=== PATIENT | female | born 1955 | race Caucasian/White ===

== ENCOUNTER 2024-05-29 17:13 | Inpatient (IN) | payer MEDICARE, MEDICAID, SELFPAY ==
[2024-05-29] VITALS (8 sets, daily range): BP systolic 118–152; BP diastolic 70–90; PULSE 55–105; RESP 16–20; TEMP 36.8–37.3; O2SAT 95–98; BMI 26.6
--- NOTE | 2024-05-29 17:35 | CTR_ITS ---
PROCEDURE INFORMATION: Exam: CT Head Without Contrast Exam date and time: 05/29/2024 6:06 PM Age: 68 years old Clinical indication: Stroke-like symptoms; Speech disturbance; Additional info: Symptoms of acute stroke TECHNIQUE: Imaging protocol: Computed tomography of the head without contrast. Radiation optimization: All CT scans at this facility use at least one of these dose optimization techniques: automated exposure control; mA and/or kV adjustment per patient size (includes targeted exams where dose is matched to clinical indication); or iterative reconstruction. Other technique: STROKE PROTOCOL was implemented. COMPARISON: No relevant prior studies available. RADIATION DOSE METRICS: Total DLP (mGy-cm): 991.08 FINDINGS: Brain: There is moderate cortical atrophy. Low-density changes in the white matter are consistent with nonspecific small vessel chronic ischemic change. There is no intracranial mass, hemorrhage or edema. There is focal cortical encephalomalacia right posterior parietal lobe in keeping with small chronic cortical infarct. There is also small chronic cortical infarct left frontal lobe. There also small bilateral chronic cerebellar infarcts. Cerebral ventricles: No ventriculomegaly. Paranasal sinuses: Visualized sinuses are unremarkable. No fluid levels. Mastoid air cells: Visualized mastoid air cells are well aerated. Bones: Unremarkable. No acute fracture. Soft tissues: Unremarkable. CT/CT head thrombolytic [id number] IMPRESSION: Old infarcts. No acute intracranial abnormality. ASSESSMENT: ASPECTS ([place] Stroke Program Early CT Score) is 10.
--- NOTE | 2024-05-29 17:35 | ECG_ITS ---
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 Measurements Intervals [place] Rate: 84 P: 64 WY: 215 QRS: 69 QRSD: 90 T: 45 QT: 364 QTc: 431 Interpretive Statements SINUS RHYTHM WITH FIRST DEGREE AV BLOCK No previous ECG available for comparison Electronically Signed On 05-29-2024 22:31:44 CDT by Ricardo Vicente M.D. [id number]
[2024-05-29 18:00] LABS: Glucose Point of Care 123 mg/dL (70-110)
[2024-05-29 18:12] LABS: Basophils # 0.1 10^3/uL (0.0-0.1); Basophils % 1.4 %; Eosinophils # 0.1 10^3/uL (0.0-0.8); Eosinophils % 0.9 %; Hematocrit 38.6 % (36-47); Lymphocytes # 2.1 10^3/uL (0.8-4.8); Lymphocytes % 24.2 %; Mean Corpuscular HGB Conc 34.2 g/dL (30-55); Mean Corpuscular Hemoglobin 33.3 pg (27-33); Mean Corpuscular Volume 97.5 fl (85-98); Mean Platelet Volume 10.5 fL (7.4-10.4); Monocytes # 0.5 10^3/uL (0.2-0.9); Neutrophils # 5.67 10^3/uL (1.8-7.7); Neutrophils % 67.1 %; Nucleated Red Blood Cells % 0 %; Platelet Count 246 10^3/cmm (157-399); Red Blood Count 3.96 10^6/uL (3.85-5.65); White Blood Count 8.46 10^3/uL (3.29-11.43)
[2024-05-29 18:26] LABS: INR 0.98 (0.8-1.2)
[2024-05-29 18:27] LABS: Partial Thromboplastin Time 24.4 SECONDS (23.9-36.7)
[2024-05-29 18:30] LABS: Alanine Aminotransferase 16 U/L (0-33); Albumin Level 4.3 g/dL (3.5-5.2); Alkaline Phosphatase 87 U/L (35-105); Anion Gap 15.5 (5-19); Aspartate Amino Transferase 26 U/L (0-32); Blood Urea Nitrogen 7 mg/dL (8-23); Carbon Dioxide 23 mmol/L (22-29); Chloride 106 mmol/L (98-107); Creatinine Clr Calc Pharmacy 58.3565; Globulin 3.3 g/dL (1.3-4.6); Glomerular Filtration Rate 62.5 mL/min (90-130); Glucose 120 mg/dL (65-115); Osmolality Calculated 291 mOsm/kg (285-295); Potassium 3.5 mmol/L (3.5-5.1); Sodium 141 mmol/L (136-145); Total Bilirubin 0.8 mg/dL (0.15-1.2); Total Protein 7.6 g/dL (6.6-8.7)
--- NOTE | 2024-05-29 18:41 | ED_ITS ---
HPI - Neuro Symptoms/Deficit 2 General: Chief Complaint: Neuro Symptoms/Deficit Stated Complaint: Stroke Time Seen by Provider: 05/29/24 17:30 History of Present Illness: 68-year-old female presents along with h er ex- who is reportedly her caregiver and who lives with her. Last night, ex- states that he felt some shaking in the bed. When he looked over she had her arm stuck up in the air. He reports that she was difficult to wake up; he had to use a moist wet cloth. Eventually she woke up and he called EMS because her speech seemed slurred. They came and did an assessment. The patient had return to baseline and she refused to come here. She has had various different complaints throughout the morning. When she checked and she reported something about chest pain which she now denies. Currently she is saying that she feels like her right second toe is cramping. Patient reports previously in the day she had ringing in her years and then it popped and went away. Later during the interview she says her right foot feels like it swelling. Then, she says she feels like her tongue is swelling. Patient recently started Rexulti for manic episodes. At this time, patient does not have any focal neurologic deficits but she was originally triaged as possible stroke because she reported she felt like her speech was slurred. Associated symptoms: Deny nausea, syncope or vomiting Related Data Home Medications Medication Instructions Recorded Confirmed atorvastatin 20 mg tablet 20 mg PO QPM 05/29/24 05/29/24 brexpiprazole 0.5 mg tablet 0.5 mg PO DAILY 05/29/24 05/29/24 (Rexulti) hydrocodone 10 mg-acetaminophen 1 tab PO Q4H PRN Pain 05/29/24 05/29/24 325 mg tablet Allergies Allergy/AdvReac Type Severity Reaction Status Date / Time No Known Allergies Allergy Verified 05/29/24 19:40 Review of Systems 2 General: Reports: 10 or more systems reviewed and unremarkable except in HPI and below Const: Denies: fever(s), chills or body aches Eyes: Denies: change in vision ENMT: Denies: throat pain Card: Denies: edema or syncope Resp: Denies: dyspnea or productive cough GI: Denies: abdominal pain, nausea, vomiting or diarrhea : Denies: flank pain, dysuria or urinary frequency Musc: Denies: neck pain, back pain or extremity swelling Skin/Breast: Denies: rash or erythema Neuro: Denies: weakness in extremities, lack of coordination or difficulty walking Psych: Reports: anxiety and difficulty concentrating; Denies: paranoia, visual hallucinations, auditory hallucinations, suicidal ideation or homicidal ideation NIH stroke score 2 NIHSS: Level Of Consciousness - 1a: 0 Level Of Consciousness Questions - 1b: Both Correct Level Of Consciousness Commands - 1c: Both Correct Best Gaze - 2: Normal Visual Kc - 3: No Visual Loss Facial Palsy - 4: N ormal Motor Arm Right - 5: No Drift Motor Arm Left - 5: No Drift Motor Leg Right - 6: No Drift Motor Leg Left - 6: No Drift Limb Ataxia - 7: A bsent Sensory - 8: Normal Best Language - 9: No Aphasia Dysarthia - 10: Normal Extinction And Inattention - 11: 0 Score: Total Score: 0 Physical Exam 2 Const: COMMON NORMALS: no limitations, alert and well nourished EXAM LIMITATIONS: no altered mental status GENERAL APPEARANCE: well kempt HENMT: COMMON NORMALS: normocephalic, atraumatic and external ears normal H EAD & SCALP: normocephalic and atraumatic EXTERNAL EAR: Yes external ears normal MOUTH: no muffled voice Eye: COMMON NORMALS: EOMs intact bilaterally, conjunctivae normal and no scleral icterus CONJUNCTIVA: Yes conjunctivae normal Neck/C-Spine: COMMON NORMALS: no JVD GENERAL: Yes normal visual inspection and Yes trachea midline Resp: COMMON NORMALS: normal respiratory effort, No use of accessory muscles and clear to auscultation bilaterally AUSCULTATION: clear to auscultation bilaterally Cardio: COMMON NORMALS: no JVD, regular rate and regular rhythm RATE: r egular rate RHYTHM: regular rhythm GI: COMMON NORMALS: Soft to palpation and non-tender PALPATION: Yes Soft to palpation and No Guarding due to palpation present (GI) Extremity: COMMON NORMALS: normal to inspection Neuro: COMMON NORMALS: moves all extremities, no focal motor deficits and no sensory deficits noted SENSORIUM/ORIENTATION: Yes alert SPEECH: speech normal Psych: COMMON NORMALS: mental status grossly normal APPEARANCE: Yes grossly normal and Yes well kempt ATTITUDE: Yes engaged ACTIVITY/MOTOR BEHAVIOR: Y es appropriate eye contact, Yes fidgeting and Yes restless SPEECH: Yes Pressured speech present MOOD & AFFECT: Yes anxious, No irritable, No tearful and No expansive affect THOUGHT PROCESS: Flight of ideas present THOUGHT CONTENT: Yes Normal thought content present INSIGHT: Fair insight present (Psych) Skin: COMMON NORMALS: turgor normal and no jaundice GENERAL SKIN EXAM: t urgor normal and other (Healing left great toe paronychia, part of the great toenail was removed fo) Course 2 ED course: CT scan of the head shows multiple old strokes. The patient's laboratory workup here has been mostly unremarkable. Nothing to explain her symptoms. While she was here, her came out of the room and said she had an episode where her face seemed to scrunched up and then she complained of feeling numb all over her body. No tonic-clonic movements. I went in to reassess her and she is able to follow commands, normal speech, normal mentation, she feels kind of numb diffusely on the left and right side of her body and all throughout her body. It is certainly nonfocal. She is moving all of her extremities with excellent strength and normal coordination. At this point, I think the patient needs an MRI and may need an EEG. I have reached out to neurology for consultation at 1945 Consultations: Consultation #1: Discussed with Dr Martin at [facility] Neurology. Ddx: seizure, functional/psych, TIA. Reasonable to do MRI brain, spot eeg (up to 3x per day). Consider seizure medication if concern persists, depakote. Vital Signs: Vital signs: Vital Signs Temperature 99.1 F 05/29/24 17:23 Pulse Rate 68 05/29/24 22:24 Respiratory Rate 17 05/29/24 21:42 Blood Pressure 132/76 05/29/24 22:24 Pulse Oximetry 95 05/29/24 22:24 Oxygen Delivery Me thod Room Air 05/29/24 22:53 MDM - Neuro Symptoms/Deficit Medical Decision Making Patient has a variety of complaints and concerns which seem to wax and wane. I cannot find any focal neurologic deficits on her examination on arrival. She is anxious and somewhat restless. She was recently treated for riley and is on rexulti. She seems to have some flight of ideas. She is somewhat delayed in answering her orientation questions but is able to do so accurately. Concerning last night's episode, it is unclear whether she was having a nightmare, seizure, dystonic reaction, or something else. There is a very large differential diagnosis for this that ranges from mental health to seizure to some infection, metabolic disturbance, medication adverse effect, atypical cva, encephalopathy, and large differential diagnosis. UPDATES: Patient has several old infarcts on her CT scan. Her workup in the emergency department has been unremarkable. Differential diagnosis remains functional, stroke, seizure, medication side effect. Patient will be admitted for MRI of the brain. Patient aware that we do not have EEG on the weekend. If there is clinical concern for seizure, we can start Depakote or similar. Discussed with hospitalist for admission. Lab Data 05/29/24 17:58 05/29/24 17:[address] 05/29/24 17:35 IMPRESSION: Old infarcts. No acute intracranial abnormality. ASSESSMENT: ASPECTS ([place] Stroke Program Early CT Score) is 10. Laboratory Results WBC 8.46 10^3/uL (3.29-11.43) 05/29/24 17:58 RBC 3.96 10^6/uL (3.85-5.65) 05/29/24 17:58 Hgb 13.20 g/dL (11.27-16.99) 05/29/24 17:58 Hct 38.6 % (36-47) 05/29/24 17:58 MCV 97.5 fl (85-98) 05/29/24 17:58 MCH 33.3 pg (27-33) H 05/29/24 17:58 MCHC 34.2 g/dL (30-55) 05/29/24 17:58 RDW 13.0 % (12.1-15.1) 05/29/24 17:58 Plt Count 246 10^3/cmm (157-399) 05/29/24 17:58 MPV 10.5 fL (7.4-10.4) H 05/29/24 17:58 Neut % (Auto) 67.1 % 05/29/24 17:58 Lymph % (Auto) 24.2 % 05/29/24 17:58 [place] % (Auto) 6.0 % 05/29/24 17:58 Eos % (Auto) 0.9 % 05/29/24 17:58 Baso % (Auto) 1.4 % 05/29/24 17:58 Neut # (Auto) 5.67 10^3/uL (1.8-7.7) 05/29/24 17:58 Lymph # (Auto) 2.1 10^3/uL (0.8-4.8) 05/29/24 17:58 [place] # (Auto) 0.5 10^3/uL (0.2-0.9) 05/29/24 17:58 Eos # (Auto) 0.1 10^3/uL (0.0-0.8) 05/29/24 17:58 Baso # (Auto) 0.1 10^3/uL (0.0-0.1) 05/29/24 17:58 Nucleated RBC % (auto) 0 % 05/29/24 17:58 Nucleated RBCs # 0.0 /100WBC 05/29/24 17:58 PT 13.30 SECONDS (12.1-14.9) 05/29/24 17:58 INR 0.98 (0.8-1.2) 05/29/24 17:58 APTT 24.4 SECONDS (23.9-36.7) 05/29/24 17:58 Sodium 141 mmol/L (136-145) 05/29/24 17:58 Potassium 3.5 mmol/L (3.5-5.1) 05/29/24 17:58 Chloride 106 mmol/L (98-107) 05/29/24 17:58 Carbon Dioxide 23 mmol/L (22-29) 05/29/24 17:58 Anion Gap 15.5 (5-19) 05/29/24 17:58 BUN 7 mg/dL (8-23) L 05/29/24 17:58 Creatinine 0.9 mg/dL (0.5-0.9) 05/29/24 17:58 GFR Calculation 62.5 mL/min (90-130) L 05/29/24 17:58 Glucose 120 mg/dL (65-115) H 05/29/24 17:58 POC Glucose 123 mg/dL (70-110) H 05/29/24 17:56 Calculated Osmolality 291 mOsm/kg (285-295) 05/29/24 17:58 Calcium 9.0 mg/dL (8.5-10.5) 05/29/24 17:58 Total Bilirubin 0.8 mg/dL (0.15-1.2) 05/29/24 17:58 AST 26 U/L (0-32) 05/29/24 17:58 ALT 16 U/L (0-33) 05/29/24 17:58 Alkaline Phosphatase 87 U/L (35-105) 05/29/24 17:58 Total Protein 7.6 g/dL (6.6-8.7) 05/29/24 17:58 Albumin 4.3 g/dL (3.5-5.2) 05/29/24 17:58 Globulin 3.3 g/dL (1.3-4.6) 05/29/24 17:58 Urine Color Yellow (Yellow) 05/29/24 20:07 Urine Appearance Clear (CLEAR) 05/29/24 20:07 Urine pH 6.5 (5-7) 05/29/24 20:07 Ur Specific [place] 1.010 (1.005-1.030) 05/29/24 20:07 Urine Protein Negative (Negative) 05/29/24 20:07 Urine Glucose (UA) Negative (Normal) 05/29/24 20:07 Urine Ketones Negative (Negative) 05/29/24 20:07 Urine Blood 1+ (Negative) A 05/29/24 20:07 Urine Nitrate Negative (Negative) 05/29/24 20:07 Urine Bilirubin Negative (Negative) 05/29/24 20:07 Urine Urobilinogen 1.0 mg/dL (Negative) 05/29/24 20:07 Ur Leukocyte Esterase Trace (Negative) A 05/29/24 20:07 Urine RBC 0-2 /hpf (0-2) 05/29/24 20:07 Urine WBC 0-5 /hpf (0-5) 05/29/24 20:07 Ur Squamous Epith Cells 6-10 /hpf (0-5) 05/29/24 20:07 Amorphous Sediment Not Reportable 05/29/24 20:07 Urine Bacteria None seen /hpf (NONE) 05/29/24 20:07 Hyaline Casts 1.21 /lpf 05/29/24 20:07 Urine Opiates Screen Negative ng/mL (Negative) 05/29/24 20:07 Ur Barbiturates Screen Negative ng/mL (Negative) 05/29/24 20:07 Ur Phencyclidine Scrn Negative ng/mL (Negative) 05/29/24 20:07 Ur Amphetamines Screen Negative ng/mL (Negative) 05/29/24 20:07 U Benzodiazepines Scrn Negative ng/mL (Negative) 05/29/24 20:07 Urine Cocaine Screen Negative ng/mL (Negative) 05/29/24 20:07 U Marijuana (THC) Screen Positive ng/mL (Negative) H 05/29/24 20:07 All radiology interpretation(s) finalized by discharge ED provider radiology interpretation(s): CT Radiology interp: Brain: There is moderate cortical atrophy. Low-density changes in the white matter are consistent with nonspecific small vessel chronic ischemic change. There is no intracranial mass, hemorrhage or edema. There is focal cortical encephalomalacia right posterior parietal lobe in keeping with small chronic cortical infarct. There is also small chronic cortical infarct left frontal lobe. There also small bilateral chronic cerebellar infarcts. Cerebral ventricles: No ventriculomegaly. Paranasal sinuses: Visualized sinuses are unremarkable. No fluid levels. Mastoid air cells: Visualized mastoid air cells are well aerated. Bones: Unremarkable. No acute fracture. Soft tissues: Unremarkable. Discharge Plan Discharge Patient Disposition: Admitted As Inpatient Admit Provider: Edwardo Brooks Clinical Impression: Convulsions, Slurred speech, Anxiety Condition: Stable Coding Level of Care Code ED Finance Controller for Mary Alice Camargo
[2024-05-29 20:19] LABS: Bilirubin Urine Negative (Negative); Blood Urine 1+ (Negative); Glucose Urine UA Negative (Normal); Ketones Urine Negative (Negative); Leukocyte Esterase Urine Trace (Negative); Nitrate Urine Negative (Negative); Protein Urine Negative (Negative); Urine Appearance Clear (CLEAR); Urine Color Yellow (Yellow); pH Urine 6.5 (5-7)
[2024-05-29 20:24] LABS: Add Urine Microscopic? YES; Bacteria Urine None Seen /hpf; Hyaline Casts Urine 1.21 /lpf; RBC Urine 0-2 /hpf (0-2); WBC Urine 0-5 /hpf (0-5)
[2024-05-29 20:26] LABS: Amphetamines Screen Urine Negative (Negative); Barbiturates Screen Urine Negative (Negative); Benzodiazepines Screen Urine Negative (Negative); Cocaine Screen Urine Negative (Negative); Opiate Screen Urine Negative (Negative); PCP Screen Urine Negative (Negative); THC Screen Urine Positive (Negative)
[2024-05-29] MEDS: nicotine 21 mg Patch 1 PATCH TRANSDERMA (22:17)
[2024-05-30] VITALS (9 sets, daily range): BP systolic 121–152; BP diastolic 63–83; PULSE 54–71; RESP 16–18; TEMP 36.8–37; O2SAT 95–98
--- NOTE | 2024-05-30 00:32 | MRR_ITS ---
PROCEDURE INFORMATION: Exam: MR Head Without Contrast Exam date and time: 05/30/2024 10:21 AM Age: 68 years old Clinical indication: Altered mental status/memory loss; Confusion or disorientation; Additional info: Possible seizure TECHNIQUE: Imaging protocol: Magnetic resonance imaging of the head without contrast. COMPARISON: CT head thrombolytic [id number] 05/29/2024 6:06 PM FINDINGS: Brain: There is prominence of the subarachnoid spaces compatible with atrophy. No extra-axial fluid collections or masses are appreciated. There are small-vessel ischemic change within the periventricular white matter. There is an old left cerebellar infarct. Small punctate focus of diffusion restriction is noted involving the posterior left temporal lobe cortex suggesting a small acute infarct. No vasogenic edema, mass, or positive mass effect is noted. No abnormal enhancement is noted on the postcontrast images. Cerebral ventricles: Normal. No ventriculomegaly. Bones: Unremarkable. Paranasal sinuses: Normal as visualized. No acute sinusitis. Mastoid air cells: Normal as visualized. No mastoid effusion. Orbital cavities: Unremarkable. Soft tissues: Unremarkable. MR/MR head wo/w con [id number] IMPRESSION: 1. Atrophy with small-vessel ischemic change and old left cerebellar infarct. 2. Small punctate acute infarct involving the cortex of the posterior left temporal lobe.
--- NOTE | 2024-05-30 01:00 | P.HP_ITS ---
Providers/Chief Complaint 2 Admitting Physician: Edwardo Brooks Primary Care Provider: Alize Damon MD Chief Complaint: Stroke History of Present Illness Pleasant 68-year-old lady with history of depression, reports had been recently started on Rexulti about a week ago was brought in for evaluation due to concern for her ex- who has been taking care of her, last night he noticed that she was having shaking spell in bed and had her arm stuck up in the air. She reportedly was difficult to wake up after the episode. At that time EMS was called after she woke up due to her having slurred speech although she declined to come to the hospital at that time. She reported additional complaints to ER physician, including toe cramping, episode of ringing in her ears, swelling of tongue apart from the above. With concern for possible seizure, case was discussed with neurologist, and recommendation for MRI assessment, spot EEG, as per schedule with ER physician with patient and family that we do not have EEG on weekend, or neurology consultation available, they are aware and would still like to stay here for initial assessment management. Review of Systems 2 Const: Denies: fever(s), chills, body aches or malaise Card: Denies: chest pain Resp: Denies: dyspnea GI: Denies: nausea, vomiting or diarrhea Skin/Breast: Denies: rash Medications/Allergies Home Medications Medication Instructions Recorded Confirmed Last Taken Type atorvastatin 20 mg tablet 20 mg PO QPM 05/29/24 05/29/24 Unknown History brexpiprazole 0.5 mg tablet 0.5 mg PO DAILY 05/29/24 05/29/24 Unknown History (Rexulti) hydrocodone 10 mg-acetaminophen 1 tab PO Q4H PRN Pain 05/29/24 05/29/24 Unknown History 325 mg tablet Allergies Allergy/AdvReac Type Severity Reaction Status Date / Time No Known Allergies Allergy Verified 05/29/24 19:40 PFSH Acute 2 PFSH: Medical History (Updated 05/30/24 @ 01:02 by Edwardo Brooks MD) Riley Depression Social History (Updated 05/30/24 @ 01:02 by Edwardo Brooks MD) Smoking and tobacco/nicotine status: current every day tobacco/nicotine user Alcohol intake: current Alcohol intake frequency: holidays/special occasions only Substance/Drug Use: current Substance/Drug use type: Marijuana Lives independently: Yes Marital status: Vitals/I&O/Wt Last Vital Signs Temp 98.3 F 05/29/24 22:37 Pulse 55 L 05/29/24 22:37 Resp 17 05/29/24 22:37 BP 152/74 05/29/24 22:37 Pulse Ox 98 05/29/24 22:37 O2 Del Method Room Air 05/29/24 22:53 Weight last 48 hrs Weight 70.307 kg Physical Exam 2 Const: COMMON NORMALS: patient oriented x3 and alert GENERAL APPEARANCE: c ooperative ORIENTATION/CONSCIOUSNESS: Yes awake HENMT: COMMON NORMALS: oropharynx normal Neck/C-Spine: COMMON NORMALS: no JVD Resp: COMMON NORMALS: normal respiratory effort and clear to auscultation bilaterally AUSCULTATION: clear to auscultation bilaterally Cardio: COMMON NORMALS: no JVD, regular rhythm, S1 normal heart sound present, S2 normal heart sound present and No murmurs present (Cardio) RHYTHM: regular rhythm HEART SOUNDS: S1 normal heart sound present and S2 normal heart sound present GI: COMMON NORMALS: Normal to inspection, nondistended, normoactive bowel sounds present, Soft to palpation and non-tender PALPATION: Yes Soft to palpation Extremity: COMMON NORMALS: no joint enlargement and no pedal edema Neuro: COMMON NORMALS: patient oriented x3 and moves all extremities S ENSORIUM/ORIENTATION: Yes alert Skin: COMMON NORMALS: no rashes or lesions noted GENERAL SKIN EXAM: no rashes or lesions noted Data 05/29/24 17:58 05/29/24 17:58 A&P Assessment and plan (1) Convulsions: Convulsions reported by her ex- who was staying over, she was then difficulty awake and having slurred speech subsequently, although initially declined assessment at that time when EMS had arrived. With additional episode waxing and waning, they came in for assessment. Case was discussed with neurology with recommendation for additional assessment MRI, spot EEG, although per discussion with patient and family we do not have EEG or neurology consultation currently by ER physician, day prefer to stay here. MRI is requested. Reviewed vitals, CBC, CMP, UA, UDS, EKG, on my depression first- degree block, pending official read, CT head, ER documentation, discussed with ER provider. She reports that she was recently started on Rexulti for depression, per prior record riley, discussed with her this medication may have adverse effect of seizure. Would not continue Rexulti given concern for possible seizure episode. In case of need for mood stabilization and/or recurrence of further episodes as per neurology consideration may be given to initiation on Depakote. She does not have slurred speech currently. Has been nonfocal on exam. Hold aspirin and additional stroke workup until MRI results available (2) Slurred speech: Additional assessment by MRI for possibility of CVA, and after possible seizure episode. Plan Depression, riley, had been recently started on Rexulti. Smoking addiction: Discussed for 3 and half minutes, encourage cessation. She is not ready to quit continue to revisit. Nicotine patch had been requested, nicotine lozenges such as needed. She also smokes marijuana, which she states she obtains from a dispensary by prescription. HLD: Continue statin. Attestations 2 Medical Necessity Statement*: Place in observation for additional assessment management after episode of possible seizure, slurred speech, assessment of possible CVA. and High MDM includes number and complexity of problems actively addressed during encounter and amount and/or complexity of data reviewed/ordered [ previous or external records, resulted lab(s)/test(s), ordered lab(s)/test(s), independent test interpretation and other healthcare professional discussion] as documented Diagnoses Convulsions R56.9 Slurred speech R47.81
[2024-05-30 05:03] LABS: Magnesium 1.9 mg/dL (1.7-2.3)
[2024-05-30 06:43] LABS: Glucose Point of Care 114 mg/dL (70-110)
--- NOTE | 2024-05-30 08:17 | USR_ITS ---
PROCEDURE INFORMATION: Exam: US Duplex Bilateral Extracranial Arteries; Complete; Carotid Arteries Exam date and time: 05/30/2024 4:30 PM Age: 68 years old Clinical indication: Other: CVA TECHNIQUE: Imaging protocol: Real-time duplex ultrasound scan of the bilateral extracranial arteries combining gabriel scale, color Doppler and spectral waveform analysis with image documentation. Complete exam. Exam focused on the carotid arteries. COMPARISON: CT head thrombolytic [id number] 05/29/2024 6:06 PM FINDINGS: Right common carotid artery: Mild plaquing right common carotid bifurcation. Right internal carotid artery: Unremarkable. No occlusion or stenosis. Waveforms are normal. Right ICA/CCA ratio: Within normal limits. Right external carotid artery: No stenosis in the origin. Right vertebral artery: Unremarkable. Antegrade flow. Left common carotid artery: Mild plaquing left common carotid bifurcation. Left internal carotid artery: Unremarkable. No occlusion or stenosis. Waveforms are normal. Left ICA/CCA ratio: Within normal limits. Left external carotid artery: No stenosis in the origin. Left vertebral artery: Unremarkable. Antegrade flow. US/CV carotid duplex BI* [id number] IMPRESSION: No high-grade carotid arterial stenosis. REFERENCES: SRU CRITERIA. The degree of internal carotid artery stenosis is based on criteria defined by the Society of Radiologists in Ultrasound (SRU). Normal is no stenosis. Mild is less than 50% stenosis. Moderate is 50-69% stenosis. Severe is greater than 69% stenosis to near occlusion. Near occlusion is a markedly narrowed lumen. Total occlusion is no detectable patent lumen.
--- NOTE | 2024-05-30 08:17 | USCV_ITS ---
Estefany Chin Age: 68 Gender: F : 1955 Exam Date: 05/30/2024 16:02 Ordering Phys: Neymar Claudio MD Technologist: Alex Faulkner Exam Location: [facility] [place] Indication: cva BP: 151 / 168 HR: 72 Rhythm: Sinus Technical Quality: Adequate MEASUREMENTS (Male / Female) Normal Values 2D ECHO LV Diastolic Diameter PLAX 4.5 cm 4.2 - 5.9 / 3.9 - 5.3 cm IVS Diastolic Thickness 1.3 cm 0.6 - 1.0 / 0.6 - 0.9 cm IVS Systolic Thickness 1.6 cm LVPW Diastolic Thickness 1.8 cm 0.6 - 1.0 / 0.6 - 0.9 cm LVPW Systolic Thickness 2.1 cm LVOT Diameter 2.1 cm LV Ejection Fraction 2D Teich 70.8 % LV Ejection Fraction MOD 4C 66.1 % LV Ejection Fraction MOD 2C 66.5 % LV Ejection Fraction 2C AL 67.0 % LA Diameter 3.2 cm RA Systolic Volume 4C AL 28.1 ml RA Systolic Volume 4C MOD 27.8 ml LA Sys Volume AL 69.5 cm cubed LA Sys Volume Index AL 38.6 cm cubed/m squared Aorta at Sinotubular Diameter 2.6 cm IVC Diameter 1.9 cm M-MODE LA Ao Ratio MM 1.2 AV Cusp Separation MM 1.4 cm DOPPLER AV Peak Velocity 479.5 cm/s LVOT Peak Velocity 143.0 cm/s AV Area Cont Eq pk 1.1 cm squared MV Peak Velocity 303.0 cm/s MV Area PHT 3.1 cm squared Mitral E to A Ratio 0.7 TV Peak Velocity 297.0 cm/s TR Peak Velocity 308.0 cm/s TR Peak Gradient 37.9 mmHg TR Mean Velocity 221.0 cm/s TR Mean Gradient 22.2 mmHg TR Velocity Time Integral 84.5 cm PV Peak Velocity 117.0 cm/s RV Ejection Time 0.3 s FINDINGS Left Ventricle Left ventricle is normal in size. LV function is normal with EF 55 to 60%. No regional wall motion abnormalities seen. Grade 1 diastolic dysfunction. Right Ventricle Normal in size and function. Right Atrium Normal in size. Left Atrium Dilated. Mitral Valve Structurally normal mitral valve. Mild mitral regurgitation. Aortic Valve Aortic valve is thickened and calcified. Doppler exam not adequate to assess for aortic stenosis. Mild to moderate aortic regurgitation Tricuspid Valve Mild tricuspid regurgitation. Pulmonary artery systolic pressure is normal. Pulmonic Valve Not well visualized Pericardium Normal Aorta Normal in size IVC Appears to be normal CONCLUSIONS LV systolic function is normal with EF of 55-60% Grade 1 diastolic dysfunction Left atrial dilation Mild mitral regurgitation Aortic valve is thickened and calcified. Doppler exam not adequate to assess for aortic stenosis. Mild to moderate aortic regurgitation Mild tricuspid regurgitation. No comparison studies are available Jak Caldwell MD (Electronically Signed) Final Date: 31 May 2024 10:31 S
[2024-05-30] MEDS: aspirin 81 mg EC Tablet PO (08:32)
[2024-05-30] MEDS: ALPRAZolam 0.5 mg Tablet PO (09:51)
[2024-05-30] MEDS: gadobenate dimeglumine 20 mL vial IV (10:55)
[2024-05-30] MEDS: sodium chloride 0.9% 1,000 ML 75 ML IV (11:13)
[2024-05-30 12:36] LABS: Glucose Point of Care 129 mg/dL (70-110)
[2024-05-30] MEDS: nicotine 21 mg Patch 1 PATCH TRANSDERMA (13:39)
--- NOTE | 2024-05-30 15:14 | P.PN_ITS ---
Subjective 2 Subjective: Patient was seen this morning, she is sitting up beside the bed, she denies any fevers, chills, cough is alert oriented x 3, following all commands, no focal neurologic deficits, no headache, blurry vision, she does at times have word finding difficulty, no's slurring of her words, she tells me that she has been told that she has strokes, but her outpatient physician she does smoke cigarettes, Vitals/I&O/Wt Last Vital Signs Temp 98.3 F 05/30/24 12:00 Pulse 65 05/30/24 12:00 Resp 16 05/30/24 12:00 BP 151/68 05/30/24 12:00 Pulse Ox 98 05/30/24 12:00 O2 Del Method Room Air 05/30/24 12:00 05/30/24 05/30/24 05/30/24 06:59 14:59 22:59 Intake Total 240 / 240 240 / 240 Balance 240 / 240 240 / 240 Weight last 48 hrs Weight 70.715 kg Weight 70.534 kg Weight 70.307 kg Physical Exam 2 Const: COMMON NORMALS: no acute distress and patient oriented x3 Resp: COMMON NORMALS: normal respiratory effort, No retractions, No use of accessory muscles and clear to auscultation bilaterally AUSCULTATION: clear to auscultation bilaterally Cardio: COMMON NORMALS: regular rate, regular rhythm, S1 normal heart sound present and S2 normal heart sound present RATE: regular rate RHYTHM: r egular rhythm HEART SOUNDS: S1 normal heart sound present and S2 normal heart sound present GI: COMMON NORMALS: Normal to inspection, nondistended, normoactive bowel sounds present and non-tender Extremity: COMMON NORMALS: no pedal edema Neuro: COMMON NORMALS: patient oriented x3, CN's II-XII intact bilaterally, moves all extremities, no focal motor deficits and no sensory deficits noted OTHER: Does have word finding difficulty Psych: COMMON NORMALS: mental status grossly normal Data 05/29/24 17:58 05/29/24 17:58 A&P Assessment and plan (1) Convulsions: (2) Slurred speech: (3) Acute CVA (cerebrovascular accident): (4) Anxiety: Acute CVA -Reported slurring of her words, not currently -NIH stroke scale 0 -Mild word finding difficulty -MRI of the brain MR/MR head wo/w con [id number] IMPRESSION: 1. Atrophy with small-vessel ischemic change and old left cerebellar infarct. 2. Small punctate acute infarct involving the cortex of the posterior left temporal lobe. Plan -Allow for permissive hypertension -Aspirin, statin, Plavix ? IV fluids ? Allow for permissive hypertension treat if systolic greater than 220 diastolic if greater than 120 -Neurochecks, NIH stroke scale -PT OT, -Telemetry monitoring -Will order event monitor at discharge -Cardiac echo -Carotid ultrasound Plan Depression, riley, had been recently started on Rexulti. Smoking addiction: Discussed for 3 and half minutes, encourage cessation. She is not ready to quit continue to revisit. Nicotine patch had been requested, nicotine lozenges such as needed. She also smokes marijuana, which she states she obtains from a dispensary by prescription. HLD: Continue statin. Attestations 2 Medical Necessity Statement*: Patient requires hospitalization, inpatient, greater than 2 midnights, for acute CVA Diagnoses Convulsions R56.9 Slurred speech R47.81 Acute CVA (cerebrovascular accident) I63.9 Anxiety F41.9
[2024-05-30] MEDS: clopidogrel 75 mg Tablet PO (15:30)
[2024-05-30 17:11] LABS: Glucose Point of Care 85 mg/dL (70-110)
[2024-05-30] MEDS: atorvastatin 40 mg Tablet PO (20:56)
[2024-05-31] VITALS: BP 129/61; PULSE 62; RESP 16; TEMP 36.7; O2SAT 96
[2024-05-31 04:00] VITALS: BP 155/76; PULSE 61; RESP 17; TEMP 36.7; O2SAT 96
[2024-05-31] MEDS: nicotine 4 mg lozenge MUCOUS MEM (05:27)
[2024-05-31 05:39] LABS: Basophils # 0.1 10^3/uL (0.0-0.1); Basophils % 1.8 %; Eosinophils # 0.6 10^3/uL (0.0-0.8); Eosinophils % 8.3 %; Hematocrit 39.3 % (36-47); Lymphocytes # 2.2 10^3/uL (0.8-4.8); Lymphocytes % 28.9 %; Mean Corpuscular HGB Conc 32.8 g/dL (30-55); Mean Corpuscular Hemoglobin 32.8 pg (27-33); Mean Platelet Volume 10.6 fL (7.4-10.4); Monocytes # 0.8 10^3/uL (0.2-0.9); Monocytes % 10.3 %; Neutrophils % 50.4 %; Nucleated Red Blood Cells % 0 %; Platelet Count 242 10^3/cmm (157-399); Red Blood Count 3.93 10^6/uL (3.85-5.65); White Blood Count 7.74 10^3/uL (3.29-11.43)
[2024-05-31 06:00] VITALS: PULSE 69
[2024-05-31 06:08] LABS: Anion Gap 14.4 (5-19); Blood Urea Nitrogen 8 mg/dL (8-23); Calcium 8.6 mg/dL (8.5-10.5); Carbon Dioxide 23 mmol/L (22-29); Chloride 109 mmol/L (98-107); Creatinine Clr Calc Pharmacy 58.5626; Glomerular Filtration Rate 62.5 mL/min (90-130); Glucose 98 mg/dL (65-115); Osmolality Calculated 294 mOsm/kg (285-295); Potassium 3.4 mmol/L (3.5-5.1); Sodium 143 mmol/L (136-145)
[2024-05-31] MEDS: nicotine 21 mg Patch 1 PATCH TRANSDERMA (07:42)
[2024-05-31] MEDS: aspirin 81 mg EC Tablet PO (07:42)
[2024-05-31 08:50] VITALS: BP 166/80; PULSE 63; RESP 18; TEMP 36.8; O2SAT 99
--- NOTE | 2024-05-31 10:38 | PM.DCS ---
Discharge Providers Date of Admission: 05/30/24 10:35 Date of Discharge: May 31, 2024 Attending Provider at Admission: Edwardo Brooks Attending Provider at Discharge: Neymar Claudio MD Primary Care Provider: Alize Damon MD Diagnoses at Discharge Discharge Diagnosis (1) Convulsions: Status: Acute (2) Slurred speech: Status: Acute (3) Acute CVA (cerebrovascular accident): Status: Acute (4) Anxiety: Status: Acute Reason for Visit Reason for Visit: Stroke Hospital Course Hospital Course This is a 68-year-old female who has a past medical history of depression, who presents [facility] for slurred speech, and having a shaking spell while in bed This is a 68-year-old female with a past medical history of smoking, multiple sclerosis, prior history of CVAs who presents [facility] for slurring her words, shaking , diagnosed with an acute CVA as per MRI head ct CT/CT head thrombolytic 60605 IMPRESSION: Old infarcts. No acute intracranial abnormality. head mri MR/MR head wo/w con [id number] IMPRESSION: 1. Atrophy with small-vessel ischemic change and old left cerebellar infarct. 2. Small punctate acute infarct involving the cortex of the posterior left temporal lobe. carotid us US/CV carotid duplex BI* [id number] IMPRESSION: No high-grade carotid arterial stenosis. cardiac echo CONCLUSIONS LV systolic function is normal with EF of 55-60% Grade 1 diastolic dysfunction Left atrial dilation Mild mitral regurgitation Aortic valve is thickened and calcified. Doppler exam not adequate to assess for aortic stenosis. Mild to moderate aortic regurgitation Mild tricuspid regurgitation. No comparison studies are available -During my assessment she is alert oriented x 3, following all commands no focal neurologic deficits no headache no blurry vision she was ambulating around the room without any significant symptomatology, no trouble swallowing does have intermittent word finding difficulty, but no other significant symptomatology, no lightheadedness, dizziness, no unsteadiness, she has a caregiver at home, her son is at home, her ex- is at home she has appropriate help, she feels that she can go home today, does not require significant assistance -She was managed on aspirin, statin, plavix V fluids, permissive hypertension -On discharge she remains relatively asymptomatic, no significant focal neurologic deficits she is alert oriented x 3, follows all commands ambulating around the room without any significant symptomatology -Will discharge on aspirin, Plavix, statin with a close follow-up with a primary care provider as outpatient for blood pressure check -Start [facility] tomorrow -I had an extensive discussion with her about quitting smoking cigarettes, morbidity mortality discussed risk of recurrent CVAs, hypercoagulability she voiced understanding, all questions answered, agreed to stop smoking -Discussed with her that she has any recurrent strokelike symptoms to go to emergency room -Given her history of prior CVAs involving multiple vascular territories I am going to order a event monitor to see if A-fib is a possible etiology although her telemetry monitoring as inpatient was within normal limits ? Patient was instructed if she develops bloody or black stools on aspirin and Plavix stimuli come to emergency room ? For concerns for convulsions, no episodes during the hospitalization continue to hold Rexulti, monitor for seizure episodes if so come back to the hospital Physical Exam Const: COMMON NORMALS: no acute distress and patient oriented x3 GENERAL APPEARANCE: cooperative Eye: COMMON NORMALS: Equal, round and reactive pupils present and EOMs intact bilaterally PUPIL: Yes Equal, round and reactive pupils present Resp: COMMON NORMALS: normal respiratory effort, No retractions, No use of accessory muscles and clear to auscultation bilaterally AUSCULTATION: clear to auscultation bilaterally Cardio: COMMON NORMALS: regular rate, regular rhythm, S1 normal heart sound present and S2 normal heart sound present RATE: regular rate RHYTHM: regular rhythm HEART SOUNDS: S1 normal heart sound present and S2 normal heart sound present GI: COMMON NORMALS: Normal to inspection, nondistended, normoactive bowel sounds present and non-tender Extremity: COMMON NORMALS: no pedal edema Neuro: COMMON NORMALS: patient oriented x3, CN's II-XII intact bilaterally, moves all extremities and no focal motor deficits Psych: COMMON NORMALS: mental status grossly normal Discharge Data Studies Completed and Pending Completed Studies During Hospitalization Category Date Time Status CT head thrombolytic [id number] Stat Cat Scan 05/29/24 17:35 Completed MR head wo/w con [id number] Routine MRI 05/30/24 00:32 Completed CV carotid duplex BI* [id number] Routine Ultrasound 05/30/24 08:17 Completed CV. echo complete* [id number] Routine Ultrasound 05/30/24 08:17 Completed Pending at discharge Category Date Time Status Basic Metabolic Panel AM LABS Lab 06/01/24 04:00 Ordered Basic Metabolic Panel AM LABS Lab 06/02/24 04:00 Ordered Complete Blood Count w/Auto AM LABS Lab 06/01/24 04:00 Ordered Complete Blood Count w/Auto AM LABS Lab 06/02/24 04:00 Ordered Radiology Impressions Head CT 05/29/24 17:35 IMPRESSION: Old infarcts. No acute intracranial abnormality. ASSESSMENT: ASPECTS ([place] Stroke Program Early CT Score) is 10. Head MRI 05/30/24 00:32 IMPRESSION: 1. Atrophy with small-vessel ischemic change and old left cerebellar infarct. 2. Small punctate acute infarct involving the cortex of the posterior left temporal lobe. ADDENDUM: 05/30/24 1210 COMMENT: THIS REPORT CONTAINS FINDINGS THAT MAY BE CRITICAL TO PATIENT CARE. The exam findings were verbally communicated by me to Dr. Claudio via telephone conference at 12:08 PM CDT on 05/30/2024. The findings were acknowledged and understood. Carotid Doppler Study 05/30/24 08:17 IMPRESSION: No high-grade carotid arterial stenosis. REFERENCES: SRU CRITERIA. The degree of internal carotid artery stenosis is based on criteria defined by the Society of Radiologists in Ultrasound (SRU). Normal is no stenosis. Mild is less than 50% stenosis. Moderate is 50-69% stenosis. Severe is greater than 69% stenosis to near occlusion. Near occlusion is a markedly narrowed lumen. Total occlusion is no detectable patent lumen. Laboratory Results WBC 7.74 10^3/uL (3.29-11.43) 05/31/24 05:22 RBC 3.93 10^6/uL (3.85-5.65) 05/31/24 05:22 Hgb 12.90 g/dL (11.27-16.99) 05/31/24 05:22 Hct 39.3 % (36-47) 05/31/24 05:22 MCV 100.0 fl (85-98) H 05/31/24 05:22 MCH 32.8 pg (27-33) 05/31/24 05:22 MCHC 32.8 g/dL (30-55) 05/31/24 05:22 RDW 13.0 % (12.1-15.1) 05/31/24 05:22 Plt Count 242 10^3/cmm (157-399) 05/31/24 05:22 MPV 10.6 fL (7.4-10.4) H 05/31/24 05:22 Neut % (Auto) 50.4 % 05/31/24 05:22 Lymph % (Auto) 28.9 % 05/31/24 05:22 [place] % (Auto) 10.3 % 05/31/24 05:22 Eos % (Auto) 8.3 % 05/31/24 05:22 Baso % (Auto) 1.8 % 05/31/24 05:22 Neut # (Auto) 3.90 10^3/uL (1.8-7.7) 05/31/24 05:22 Lymph # (Auto) 2.2 10^3/uL (0.8-4.8) 05/31/24 05:22 [place] # (Auto) 0.8 10^3/uL (0.2-0.9) 05/31/24 05:22 Eos # (Auto) 0.6 10^3/uL (0.0-0.8) 05/31/24 05:22 Baso # (Auto) 0.1 10^3/uL (0.0-0.1) 05/31/24 05:22 Nucleated RBC % (auto) 0 % 05/31/24 05:22 Nucleated RBCs # 0.0 /100WBC 05/31/24 05:22 PT 13.30 SECONDS (12.1-14.9) 05/29/24 17:58 INR 0.98 (0.8-1.2) 05/29/24 17:58 APTT 24.4 SECONDS (23.9-36.7) 05/29/24 17:58 Sodium 143 mmol/L (136-145) 05/31/24 05:22 Potassium 3.4 mmol/L (3.5-5.1) L 05/31/24 05:22 Chloride 109 mmol/L (98-107) H 05/31/24 05:22 Carbon Dioxide 23 mmol/L (22-29) 05/31/24 05:22 Anion Gap 14.4 (5-19) 05/31/24 05:22 BUN 8 mg/dL (8-23) 05/31/24 05:22 Creatinine 0.9 mg/dL (0.5-0.9) 05/31/24 05:22 GFR Calculation 62.5 mL/min (90-130) L 05/31/24 05:22 Glucose 98 mg/dL (65-115) 05/31/24 05:22 POC Glucose 85 mg/dL (70-110) 05/30/24 17:01 Calculated Osmolality 294 mOsm/kg (285-295) 05/31/24 05:22 Calcium 8.6 mg/dL (8.5-10.5) 05/31/24 05:22 Magnesium 1.9 mg/dL (1.7-2.3) 05/30/24 03:44 Total Bilirubin 0.8 mg/dL (0.15-1.2) 05/29/24 17:58 AST 26 U/L (0-32) 05/29/24 17:58 ALT 16 U/L (0-33) 05/29/24 17:58 Alkaline Phosphatase 87 U/L (35-105) 05/29/24 17:58 Total Protein 7.6 g/dL (6.6-8.7) 05/29/24 17:58 Albumin 4.3 g/dL (3.5-5.2) 05/29/24 17:58 Globulin 3.3 g/dL (1.3-4.6) 05/29/24 17:58 Urine Color Yellow (Yellow) 05/29/24 20:07 Urine Appearance Clear (CLEAR) 05/29/24 20:07 Urine pH 6.5 (5-7) 05/29/24 20:07 Ur Specific [place] 1.010 (1.005-1.030) 05/29/24 20:07 Urine Protein Negative (Negative) 05/29/24 20:07 Urine Glucose (UA) Negative (Normal) 05/29/24 20:07 Urine Ketones Negative (Negative) 05/29/24 20:07 Urine Blood 1+ (Negative) A 05/29/24 20:07 Urine Nitrate Negative (Negative) 05/29/24 20:07 Urine Bilirubin Negative (Negative) 05/29/24 20:07 Urine Urobilinogen 1.0 mg/dL (Negative) 05/29/24 20:07 Ur Leukocyte Esterase Trace (Negative) A 05/29/24 20:07 Urine RBC 0-2 /hpf (0-2) 05/29/24 20:07 Urine WBC 0-5 /hpf (0-5) 05/29/24 20:07 Ur Squamous Epith Cells 6-10 /hpf (0-5) 05/29/24 20:07 Amorphous Sediment Not Reportable 05/29/24 20:07 Urine Bacteria None seen /hpf (NONE) 05/29/24 20:07 Hyaline Casts 1.21 /lpf 05/29/24 20:07 Urine Opiates Screen Negative ng/mL (Negative) 05/29/24 20:07 Ur Barbiturates Screen Negative ng/mL (Negative) 05/29/24 20:07 Ur Phencyclidine Scrn Negative ng/mL (Negative) 05/29/24 20:07 Ur Amphetamines Screen Negative ng/mL (Negative) 05/29/24 20:07 U Benzodiazepines Scrn Negative ng/mL (Negative) 05/29/24 20:07 Urine Cocaine Screen Negative ng/mL (Negative) 05/29/24 20:07 U Marijuana (THC) Screen Positive ng/mL (Negative) H 05/29/24 20:07 Vitals Last Vital Signs Temp 98.2 F 05/31/24 08:50 Pulse 63 05/31/24 08:50 Resp 18 05/31/24 08:50 BP 166/80 05/31/24 08:50 Pulse Ox 99 05/31/24 08:50 O2 Del Method Room Air 05/31/24 08:50 Discharge Plan Discharge Patient Disposition: Home Condition: Stable Prescriptions: New aspirin 81 mg Tablet,Delayed Release (Dr/Ec) 81 mg PO DAILY 30 Days Qty: 30 0RF amlodipine [Norvasc] 5 mg tablet 5 mg PO DAILY 30 Days Qty: 30 0RF Rx Instructions: start 06/01/2024 atorvastatin 40 mg Tablet 40 mg PO BEDTIME 30 Days Qty: 30 0RF clopidogrel 75 mg Tablet 75 mg PO Q24H 21 Days Qty: 21 0RF Continued hydrocodone-acetaminophen 10-325 mg tablet 1 tab PO Q4H PRN (Reason: Pain) Discontinued atorvastatin 20 mg tablet 20 mg PO QPM Rexulti 0.5 mg tablet 0.5 mg PO DAILY Discharge Orders: Discharge Order (Routine); Ordered 05/31/24 Ordered By: Neymar Claudio Other Ambulatory Orders: MCT/Event Monitor 30 Days (Routine) Timeframe: 1 Day Facility: [facility] - Location: Radiology Ordered By: Neymar Claudio Referrals: Nydia Tobias MD [Physician] - 1-3 days (We have notified Dr. Tobias's office of the need for a follow-up appointment to be scheduled. If you have not heard from them within the next 2 business days, please call them directly. ) Alize Damon MD [Primary Care Provider] - 4-7 days (You will need to contact your primary care office at [phone] and make a follow up appointment for 4-7 days from today.) Discharge Diet: Cardiac Discharge Activity: Resume usual activity Patient Instructions: Amlodipine (By mouth), Atorvastatin (By mouth), Clopidogrel (By mouth), How to Stop Smoking (ED), Cigarette Smoking and Your Health (GEN), Ischemic Stroke (DC), Opioid Safety Activity Restrictions/Additional Instructions: - If you have strokelike symptoms please call 911 -Please stop smoking -Take aspirin and Plavix as prescribed, if you develop bloody or black stools go to the emergency room -Please start taking Norvasc tomorrow -See your primary care provider this week for recheck blood pressure -Follow-up with Dr. Tobias in 1-2 weeks Discharge Attestations Time Spent in Discharge Care*: greater than 30 min Quality Metrics Clinical Quality Measures [ Cerebrovascular Accident { Contraindication to Antithrombotic: None; antithrombotic prescribed; Contraindication to Anticoagulation: Overlap treatment not indicated; Contraindication to Statin: None; Statin prescribed;}] Coding Level of Care Code 02057 Total time (in minutes) for Discharge: 45 Diagnoses Convulsions R56.9 Slurred speech R47.81 Acute CVA (cerebrovascular accident) I63.9 Anxiety F41.9
[2024-05-31 12:00] VITALS: BP 178/93; PULSE 76; RESP 16; TEMP 36.3; O2SAT 97
[2024-05-31 12:46] VITALS: BP 178/93; PULSE 76; RESP 16; TEMP 36.3; O2SAT 97
== END 2024-05-31 12:47 | disposition home or self-care (01) | DRG 65 ==
LOC: ER 18:42 → MEDSURG 22:09
PROVIDERS: Admitting Provider Internal Medicine; Emergency Provider Emergency Medicine; PCP Family Medicine; Visit Provider Family Medicine
DX: I63.9 Cerebral infarction, unspecified (principal); D68.59 Other primary thrombophilia; F30.9 Manic episode, unspecified; R47.81 Slurred speech; R48.2 Apraxia; F17.210 Nicotine dependence, cigarettes, uncomplicated; R29.700 NIHSS score 0; F41.9 Anxiety disorder, unspecified; R56.9 Unspecified convulsions; G35 Multiple sclerosis; E78.5 Hyperlipidemia, unspecified; Z86.73 Personal history of transient ischemic attack (TIA), and cerebral infarction without residual deficits
CPT/HCPCS: 36415; 36416; 70450; 70553; 80048; 80053; 80306; 81001; 82962; 83735; 85025; 85610; 85730; 93005; 93306; 93880; 97162; 99285; G0378; J7030

== ENCOUNTER → 2024-06-05 12:20 | Outpatient (BNVA) | payer MEDICARE, MEDICAID, SELFPAY | PROVIDERS: PCP Family Medicine; Referring Provider Family Medicine; Visit Provider Specialist | DX: I69.398 Other sequelae of cerebral infarction (principal); R56.9 Unspecified convulsions; G37.9 Demyelinating disease of central nervous system, unspecified; G43.711 Chronic migraine without aura, intractable, with status migrainosus; F31.61 Bipolar disorder, current episode mixed, mild; F17.210 Nicotine dependence, cigarettes, uncomplicated; Z71.6 Tobacco abuse counseling | CPT/HCPCS: 96116; 99205 ==

== ENCOUNTER 2024-06-15 14:16 | Emergency (ER) | payer MEDICARE, MEDICAID, SELFPAY ==
--- NOTE | 2024-06-15 14:17 | XR_ITS ---
WS: [id number] PORTABLE CHEST HISTORY: ams COMPARISON: None available. Mild pulmonary hyperinflation. There is a 5 mm nodule in the central LEFT lung which may be a granulo ma. No pneumonia. No pleural effusion or pneumothorax. Cardiac size: Normal. Mediastinum/Aorta: Mild atherosclerosis aorta. No osseous abnormality seen. XR/XR chest 1V portable [id number] IMPRESSION: 1. No pneumonia. 2. Mild atherosclerosis aorta. 3. 5 mm nodule central LEFT lung may be a small granuloma. No prior studies fo r comparison. Consider chest CT follow-up. This can be done on an outpatient ba sis.
[2024-06-15 14:28] VITALS: BP 136/74; PULSE 81; RESP 16; TEMP 36.9; O2SAT 93; BMI 25.7
--- NOTE | 2024-06-15 14:29 | ECG_ITS ---
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 Measurements Intervals [place] Rate: 83 P: 68 MO: 209 QRS: 70 QRSD: 85 T: 71 QT: 338 QTc: 397 Interpretive Statements SINUS RHYTHM NONSPECIFIC T-WAVE ABNORMALITY Compared to ECG 05/29/2024 17:45:29 T-wave abnormality now present First degree AV block no longer present Electronically Signed On 06-16-2024 00:02:41 CDT by Ricardo Vicente M.D. [email or web address]
--- NOTE | 2024-06-15 14:35 | ED_ITS ---
Documented by User: Apolinar TorresDO 06/17/24 06:33 HPI - Altered Mental Status 2 General: Chief Complaint: Altered Mental Status Stated Complaint: AMS Time Seen by Provider: 06/15/24 14:31 History of Present Illness: 68-year-old female presents emergency ro om with her complaint of altered mental status. She was seen earlier this COVID at outside ER she had been on Rexulti that was stopped. She had some difficulty after that she was hospitalized after what appears to been a seizure there was concern about a stroke clinic follow-up during the month Dr. Tobias did not feel that she had a stroke. Today she is rather vague about her symptoms confused and disoriented at times. The who is whether states that earlier today she was holding gum but evidently did not make any effort to harm herself. Patient denies chest pain abdominal pain dysuria urgency or frequency diarrhea nausea or vomiting. Related Data Home Medications Medication Instructions Recorded Confirmed hydrocodone 10 mg-acetaminophen 1 tab PO Q4H PRN Pain 05/29/24 06/15/24 325 mg tablet cephalexin 500 mg capsule 500 mg PO DAILY 06/05/24 06/15/24 Previous Rx's Medication Instructions Recorded amlodipine 5 mg tablet (Norvasc) 5 mg PO DAILY 30 days #30 tabs 05/31/24 aspirin 81 mg tablet,delayed 81 mg PO DAILY 30 days #30 tabs 05/31/24 release atorvastatin 40 mg tablet 40 mg PO BEDTIME 30 days #30 tabs 05/31/24 clopidogrel 75 mg tablet 75 mg PO Q24H 21 days #21 tabs 05/31/24 topiramate 100 mg tablet (Topamax) 100 mg PO BID #60 tabs 06/09/24 Allergies Allergy/AdvReac Type Severity Reaction Status Date / Time bee venom protein (honey bee) Allergy Unknown Verified 06/05/24 12:51 Iodinated Contrast Media Allergy Unknown Verified 06/05/24 12:51 gabapentin Allergy Unknown Uncoded 06/05/24 12:51 Review of Systems 2 Const: Denies: fever(s) or chills Card: Denies: chest pain Resp: Denies: dyspnea GI: Denies: abdominal pain : Denies: dysuria, urinary frequency or urinary urgency Musc: Denies: neck pain or back pain Skin/Breast: Denies: rash PFSH ED 2 PFSH: Medical History Itzel Depression Social History Smoking and tobacco/nicotine status: current every day tobacco/nicotine user (1.5 PPD) Alcohol intake: current Alcohol intake frequency: holidays/special occasions only Substance/Drug Use: current Lives independently: Yes Marital status: Physical Exam 2 Const: GENERAL APPEARANCE: cooperative ORIENTATION/CONSCIOUSNESS: Yes awake HENMT: COMMON NORMALS: normocephalic, atraumatic and hearing grossly normal bilaterally HEAD & SCALP: normocephalic and atraumatic Resp: COMMON NORMALS: normal respiratory effort, No retractions, No use of accessory muscles and clear to auscultation bilaterally AUSCULTATION: clear to auscultation bilaterally Cardio: COMMON NORMALS: regular rate, regular rhythm and No murmurs present (Cardio) RATE: regular rate RHYTHM: regular rhythm GI: COMMON NORMALS: Soft to palpation and No hepatosplenomegaly present A USCULTATION: Yes normoactive bowel sounds PALPATION: Yes Soft to palpation, No Tenderness to palpation present (GI), No Guarding due to palpation present (GI) and Yes No hepatosplenomegaly present Extremity: COMMON NORMALS: normal to inspection, capillary refill normal, no clubbing, cyanosis or edema, no calf tenderness and no pedal edema Skin: COMMON NORMALS: no rashes or lesions noted GENERAL SKIN EXAM: no rashes or lesions noted Course 2 Vital Signs: Vital signs: Vital Signs Temperature 98.5 F 06/15/24 14:28 Pulse Rate 61 06/16/24 06:07 Respiratory Rate 18 06/16/24 06:07 Blood Pressure 119/69 06/16/24 06:07 Pulse Oximetry 100 06/16/24 06:07 Oxygen Delivery Pa thod Room Air 06/16/24 06:07 MDM - Altered Mental Status Medical Decision Making Care signed out to Dr. Contreras at change of shift. See final notes for diagnosis and disposition. Patient care was transitioned to hi at shift change. She is awaiting transfer to psychiatric facility. Medically clear. Lab work is unremarkable no UTI. No renal failure. Drug screen is positive for marijuana. Chest x-ray: No acute process. No infiltrate. No pneumothorax. This was reviewed and interpreted by myself the ER physician. Patient does have a pulmonary nodule that could use follow-up. Patient does have a pulmonary nodule and will need follow-up. CT head: No acute intracranial process. no intracranial hemorrhage, no evidence of infarct. no evidence of acute fracture.This was reviewed and interpreted by myself the ER physician. Medical decision making: Differential diagnosis for a geriatric patient with worsening dementia/behavioral problems including but not limited to and based on the above HPI, review of systems and physical exam: Concerns for infection such as UTI or pneumonia. Alcohol intoxication. Cardiac issues or other medical problems to be ruled out prior to a geriatric/psychiatric admission Orders placed to evaluate differential diagnosis based on the above differential, HPI and physical exam Lab work, chest X-ray and ekg ordered to evaluate the pathologies and to clear the patient medically prior Lab Review: Laboratory results were reviewed and interpreted by myself the emergency room physician. Lab review: - Medically cleared. - EKG shows no ischemic changes. - Blood alcohol level is negative, as well as salicylate and Tylenol. - Drug screen is positive for marijuana - No signs of infection, urinalysis clear and white count is not elevated - No anemia. - BUN and creatinine are within normal limits. ?Respiratory panel is negative. Assessment and plan: Suicidal ideation Possible dementia Seizure disorder Medication change Pulmonary nodule -Transfer to geriatric neuropsychiatric facility for continued evaluation and treatment. - All lab work was reviewed and interpreted personally by myself, the ER physician - Evaluation and treatment of this problem were appropriate in the emergency setting Care assumed at change of shift we are still working on finding placement for patient at started on Seroquel 25 twice daily will have psychiatry see the patient today for further input. Psychiatry consult never obtained we would to secure placement at point of view in [facility] patient transferred by EMS stable at the time of transfer. Medical Records I reviewed the patient's medical records. Lab Data I reviewed the patient's lab results. 06/15/24 14:56 06/15/24 14:56 Radiology Impressions Chest X-Ray 06/15/24 14:17 IMPRESSION: 1. No pneumonia. 2. Mild atherosclerosis aorta. 3. 5 mm nodule central LEFT lung may be a small granuloma. No prior studies for comparison. Consider chest CT follow-up. This can be done on an outpatient basis. Head CT 06/15/24 15:08 IMPRESSION: 1. No acute intracranial hemorrhage or edema. 2. Moderate volume loss and atrophy with advanced small vessel disease and lacunar infarcts as above. No change since 05/29/2024. Laboratory Results WBC 8.27 10^3/uL (3.29-11.43) 06/15/24 14:56 RBC 4.26 10^6/uL (3.85-5.65) 06/15/24 14:56 Hgb 13.80 g/dL (11.27-16.99) 06/15/24 14:56 Hct 41.8 % (36-47) 06/15/24 14:56 MCV 98.1 fl (85-98) H 06/15/24 14:56 MCH 32.4 pg (27-33) 06/15/24 14:56 MCHC 33.0 g/dL (30-55) 06/15/24 14:56 RDW 12.8 % (12.1-15.1) 06/15/24 14:56 Plt Count 275 10^3/cmm (157-399) 06/15/24 14:56 MPV 10.4 fL (7.4-10.4) 06/15/24 14:56 Neut % (Auto) 64.7 % 06/15/24 14:56 Lymph % (Auto) 24.5 % 06/15/24 14:56 [place] % (Auto) 6.2 % 06/15/24 14:56 Eos % (Auto) 2.7 % 06/15/24 14:56 Baso % (Auto) 1.5 % 06/15/24 14:56 Neut # (Auto) 5.36 10^3/uL (1.8-7.7) 06/15/24 14:56 Lymph # (Auto) 2.0 10^3/uL (0.8-4.8) 06/15/24 14:56 [place] # (Auto) 0.5 10^3/uL (0.2-0.9) 06/15/24 14:56 Eos # (Auto) 0.2 10^3/uL (0.0-0.8) 06/15/24 14:56 Baso # (Auto) 0.1 10^3/uL (0.0-0.1) 06/15/24 14:56 Nucleated RBC % (auto) 0 % 06/15/24 14:56 Nucleated RBCs # 0.0 /100WBC 06/15/24 14:56 Sodium 140 mmol/L (136-145) 06/15/24 14:56 Potassium 3.6 mmol/L (3.5-5.1) 06/15/24 14:56 Chloride 107 mmol/L (98-107) 06/15/24 14:56 Carbon Dioxide 21 mmol/L (22-29) L 06/15/24 14:56 Anion Gap 15.6 (5-19) 06/15/24 14:56 BUN 20 mg/dL (8-23) 06/15/24 14:56 Creatinine 1.0 mg/dL (0.5-0.9) H 06/15/24 14:56 GFR Calculation 55.3 mL/min (90-130) L 06/15/24 14:56 Glucose 86 mg/dL (65-115) 06/15/24 14:56 POC Glucose 96 mg/dL (70-110) 06/15/24 15:31 Calculated Osmolality 292 mOsm/kg (285-295) 06/15/24 14:56 Calcium 9.0 mg/dL (8.5-10.5) 06/15/24 14:56 Total Bilirubin 0.7 mg/dL (0.15-1.2) 06/15/24 14:56 AST 14 U/L (0-32) 06/15/24 14:56 ALT 9 U/L (0-33) 06/15/24 14:56 Alkaline Phosphatase 100 U/L (35-105) 06/15/24 14:56 Total Protein 7.3 g/dL (6.6-8.7) 06/15/24 14:56 Albumin 4.3 g/dL (3.5-5.2) 06/15/24 14:56 Globulin 3.0 g/dL (1.3-4.6) 06/15/24 14:56 Lipase 38 U/L (13-60) 06/15/24 14:56 TSH 2.62 uIU/mL (0.27-4.20) 06/15/24 14:56 Urine Color Yellow (Yellow) 06/15/24 15:35 Urine Appearance Clear (CLEAR) 06/15/24 15:35 Urine pH 6.0 (5-7) 06/15/24 15:35 Ur Specific [place] 1.018 (1.005-1.030) 06/15/24 15:35 Urine Protein Negative (Negative) 06/15/24 15:35 Urine Glucose (UA) Negative (Normal) 06/15/24 15:35 Urine Ketones Negative (Negative) 06/15/24 15:35 Urine Blood Negative (Negative) 06/15/24 15:35 Urine Nitrate Negative (Negative) 06/15/24 15:35 Urine Bilirubin Negative (Negative) 06/15/24 15:35 Urine Urobilinogen 1.0 mg/dL (Negative) 06/15/24 15:35 Ur Leukocyte Esterase Negative (Negative) 06/15/24 15:35 Amorphous Sediment Not Reportable 06/15/24 15:35 Salicylates < 0.3 mg/dL (3-10) L 06/15/24 14:56 Urine Opiates Screen Negative ng/mL (Negative) 06/15/24 15:35 Acetaminophen < 5.0 ug/mL (10-30) L 06/15/24 14:56 Ur Barbiturates Screen Negative ng/mL (Negative) 06/15/24 15:35 Ur Phencyclidine Scrn Negative ng/mL (Negative) 06/15/24 15:35 Ur Amphetamines Screen Negative ng/mL (Negative) 06/15/24 15:35 U Benzodiazepines Scrn Negative ng/mL (Negative) 06/15/24 15:35 Urine Cocaine Screen Negative ng/mL (Negative) 06/15/24 15:35 U Marijuana (THC) Screen Positive ng/mL (Negative) H 06/15/24 15:35 Ethyl Alcohol < 10 mg/dL (0-10) 06/15/24 14:56 Coronavirus (PCR) Negative (Negative) 06/15/24 18:36 Influenza A (PCR) Negative (Negative) 06/15/24 18:36 Influenza Type B (PCR) Negative (Negative) 06/15/24 18:36 RSV (PCR) Negative (Negative) 06/15/24 18:36 Discharge Plan Discharge Patient Disposition: Xfer Psychiatric Hosp Clinical Impression: Suicidal ideation, Pulmonary nodule Condition: Stable Referrals: Alize Damon MD [Primary Care Provider] - Patient Instructions: Altered Mental Status (ED), Pulmonary Nodules (ED) Activity Restrictions/Additional Instructions: A pulmonary nodule was seen on imaging. This will need follow up imaging with your primary provider. Please schedule an appointment concerning this. Coding Level of Care Code ED Brass Pourer for Mary Alice Fwd Documented by User: Briana Contreras MD 06/15/24 19:48 HPI - Altered Mental Status 2 General: Chief Complaint: Altered Mental Status Stated Complaint: AMS Time Seen by Provider: 06/15/24 14:31 Related Data Home Medications Medication Instructions Recorded Confirmed hydrocodone 10 mg-acetaminophen 1 tab PO Q4H PRN Pain 05/29/24 06/15/24 325 mg tablet cephalexin 500 mg capsule 500 mg PO DAILY 06/05/24 06/15/24 Previous Rx's Medication Instructions Recorded amlodipine 5 mg tablet (Norvasc) 5 mg PO DAILY 30 days #30 tabs 05/31/24 aspirin 81 mg tablet,delayed 81 mg PO DAILY 30 days #30 tabs 05/31/24 release atorvastatin 40 mg tablet 40 mg PO BEDTIME 30 days #30 tabs 05/31/24 clopidogrel 75 mg tablet 75 mg PO Q24H 21 days #21 tabs 05/31/24 topiramate 100 mg tablet (Topamax) 100 mg PO BID #60 tabs 06/09/24 Allergies Allergy/AdvReac Type Severity Reaction Status Date / Time bee venom protein (honey bee) Allergy Unknown Verified 06/05/24 12:51 Iodinated Contrast Media Allergy Unknown Verified 06/05/24 12:51 gabapentin Allergy Unknown Uncoded 06/05/24 12:51 PFSH ED 2 PFSH: Medical History Itzel Depression Social History Smoking and tobacco/nicotine status: current every day tobacco/nicotine user (1.5 PPD) Alcohol intake: current Alcohol intake frequency: holidays/special occasions only Substance/Drug Use: current Lives independently: Yes Marital status: Course 2 Vital Signs: Vital signs: Vital Signs Temperature 98.5 F 06/15/24 14:28 Pulse Rate 61 06/16/24 06:07 Respiratory Rate 18 06/16/24 06:07 Blood Pressure 119/69 06/16/24 06:07 Pulse Oximetry 100 06/16/24 06:07 Oxygen Delivery Pa thod Room Air 06/16/24 06:07 MDM - Altered Mental Status Medical Decision Making Patient care was transitioned to hi at shift change. She is awaiting transfer to psychiatric facility. Medically clear. Lab work is unremarkable no UTI. No renal failure. Drug screen is positive for marijuana. Chest x-ray: No acute process. No infiltrate. No pneumothorax. This was reviewed and interpreted by myself the ER physician. Patient does have a pulmonary nodule that could use follow-up. Patient does have a pulmonary nodule and will need follow-up. CT head: No acute intracranial process. no intracranial hemorrhage, no evidence of infarct. no evidence of acute fracture.This was reviewed and interpreted by myself the ER physician. Medical decision making: Differential diagnosis for a geriatric patient with worsening dementia/behavioral problems including but not limited to and based on the above HPI, review of systems and physical exam: Concerns for infection such as UTI or pneumonia. Alcohol intoxication. Cardiac issues or other medical problems to be ruled out prior to a geriatric/psychiatric admission Orders placed to evaluate differential diagnosis based on the above differential, HPI and physical exam Lab work, chest X-ray and ekg ordered to evaluate the pathologies and to clear the patient medically prior Lab Review: Laboratory results were reviewed and interpreted by myself the emergency room physician. Lab review: - Medically cleared. - EKG shows no ischemic changes. - Blood alcohol level is negative, as well as salicylate and Tylenol. - Drug screen is positive for marijuana - No signs of infection, urinalysis clear and white count is not elevated - No anemia. - BUN and creatinine are within normal limits. ?Respiratory panel is negative. Assessment and plan: Suicidal ideation Possible dementia Seizure disorder Medication change Pulmonary nodule -Transfer to geriatric neuropsychiatric facility for continued evaluation and treatment. - All lab work was reviewed and interpreted personally by myself, the ER physician - Evaluation and treatment of this problem were appropriate in the emergency setting Lab Data 06/15/24 14:56 06/15/24 14:56 Radiology Impressions Chest X-Ray 06/15/24 14:17 IMPRESSION: 1. No pneumonia. 2. Mild atherosclerosis aorta. 3. 5 mm nodule central LEFT lung may be a small granuloma. No prior studies for comparison. Consider chest CT follow-up. This can be done on an outpatient basis. Head CT 06/15/24 15:08 IMPRESSION: 1. No acute intracranial hemorrhage or edema. 2. Moderate volume loss and atrophy with advanced small vessel disease and lacunar infarcts as above. No change since 05/29/2024. Laboratory Results WBC 8.27 10^3/uL (3.29-11.43) 06/15/24 14:56 RBC 4.26 10^6/uL (3.85-5.65) 06/15/24 14:56 Hgb 13.80 g/dL (11.27-16.99) 06/15/24 14:56 Hct 41.8 % (36-47) 06/15/24 14:56 MCV 98.1 fl (85-98) H 06/15/24 14:56 MCH 32.4 pg (27-33) 06/15/24 14:56 MCHC 33.0 g/dL (30-55) 06/15/24 14:56 RDW 12.8 % (12.1-15.1) 06/15/24 14:56 Plt Count 275 10^3/cmm (157-399) 06/15/24 14:56 MPV 10.4 fL (7.4-10.4) 06/15/24 14:56 Neut % (Auto) 64.7 % 06/15/24 14:56 Lymph % (Auto) 24.5 % 06/15/24 14:56 [place] % (Auto) 6.2 % 06/15/24 14:56 Eos % (Auto) 2.7 % 06/15/24 14:56 Baso % (Auto) 1.5 % 06/15/24 14:56 Neut # (Auto) 5.36 10^3/uL (1.8-7.7) 06/15/24 14:56 Lymph # (Auto) 2.0 10^3/uL (0.8-4.8) 06/15/24 14:56 [place] # (Auto) 0.5 10^3/uL (0.2-0.9) 06/15/24 14:56 Eos # (Auto) 0.2 10^3/uL (0.0-0.8) 06/15/24 14:56 Baso # (Auto) 0.1 10^3/uL (0.0-0.1) 06/15/24 14:56 Nucleated RBC % (auto) 0 % 06/15/24 14:56 Nucleated RBCs # 0.0 /100WBC 06/15/24 14:56 Sodium 140 mmol/L (136-145) 06/15/24 14:56 Potassium 3.6 mmol/L (3.5-5.1) 06/15/24 14:56 Chloride 107 mmol/L (98-107) 06/15/24 14:56 Carbon Dioxide 21 mmol/L (22-29) L 06/15/24 14:56 Anion Gap 15.6 (5-19) 06/15/24 14:56 BUN 20 mg/dL (8-23) 06/15/24 14:56 Creatinine 1.0 mg/dL (0.5-0.9) H 06/15/24 14:56 GFR Calculation 55.3 mL/min (90-130) L 06/15/24 14:56 Glucose 86 mg/dL (65-115) 06/15/24 14:56 POC Glucose 96 mg/dL (70-110) 06/15/24 15:31 Calculated Osmolality 292 mOsm/kg (285-295) 06/15/24 14:56 Calcium 9.0 mg/dL (8.5-10.5) 06/15/24 14:56 Total Bilirubin 0.7 mg/dL (0.15-1.2) 06/15/24 14:56 AST 14 U/L (0-32) 06/15/24 14:56 ALT 9 U/L (0-33) 06/15/24 14:56 Alkaline Phosphatase 100 U/L (35-105) 06/15/24 14:56 Total Protein 7.3 g/dL (6.6-8.7) 06/15/24 14:56 Albumin 4.3 g/dL (3.5-5.2) 06/15/24 14:56 Globulin 3.0 g/dL (1.3-4.6) 06/15/24 14:56 Lipase 38 U/L (13-60) 06/15/24 14:56 TSH 2.62 uIU/mL (0.27-4.20) 06/15/24 14:56 Urine Color Yellow (Yellow) 06/15/24 15:35 Urine Appearance Clear (CLEAR) 06/15/24 15:35 Urine pH 6.0 (5-7) 06/15/24 15:35 Ur Specific [place] 1.018 (1.005-1.030) 06/15/24 15:35 Urine Protein Negative (Negative) 06/15/24 15:35 Urine Glucose (UA) Negative (Normal) 06/15/24 15:35 Urine Ketones Negative (Negative) 06/15/24 15:35 Urine Blood Negative (Negative) 06/15/24 15:35 Urine Nitrate Negative (Negative) 06/15/24 15:35 Urine Bilirubin Negative (Negative) 06/15/24 15:35 Urine Urobilinogen 1.0 mg/dL (Negative) 06/15/24 15:35 Ur Leukocyte Esterase Negative (Negative) 06/15/24 15:35 Amorphous Sediment Not Reportable 06/15/24 15:35 Salicylates < 0.3 mg/dL (3-10) L 06/15/24 14:56 Urine Opiates Screen Negative ng/mL (Negative) 06/15/24 15:35 Acetaminophen < 5.0 ug/mL (10-30) L 06/15/24 14:56 Ur Barbiturates Screen Negative ng/mL (Negative) 06/15/24 15:35 Ur Phencyclidine Scrn Negative ng/mL (Negative) 06/15/24 15:35 Ur Amphetamines Screen Negative ng/mL (Negative) 06/15/24 15:35 U Benzodiazepines Scrn Negative ng/mL (Negative) 06/15/24 15:35 Urine Cocaine Screen Negative ng/mL (Negative) 06/15/24 15:35 U Marijuana (THC) Screen Positive ng/mL (Negative) H 06/15/24 15:35 Ethyl Alcohol < 10 mg/dL (0-10) 06/15/24 14:56 Coronavirus (PCR) Negative (Negative) 06/15/24 18:36 Influenza A (PCR) Negative (Negative) 06/15/24 18:36 Influenza Type B (PCR) Negative (Negative) 06/15/24 18:36 RSV (PCR) Negative (Negative) 06/15/24 18:36 All radiology interpretation(s) finalized by discharge Discharge Plan Discharge Patient Disposition: Xfer Psychiatric Hosp Clinical Impression: Suicidal ideation, Pulmonary nodule Condition: Stable Referrals: Alize Damon MD [Primary Care Provider] - Patient Instructions: Altered Mental Status (ED), Pulmonary Nodules (ED) Activity Restrictions/Additional Instructions: A pulmonary nodule was seen on imaging. This will need follow up imaging with your primary provider. Please schedule an appointment concerning this. Coding Level of Care Code ED Brass Pourer for Mary Alice Camargo
[2024-06-15 15:01] LABS: Basophils # 0.1 10^3/uL (0.0-0.1); Basophils % 1.5 %; Eosinophils # 0.2 10^3/uL (0.0-0.8); Eosinophils % 2.7 %; Hematocrit 41.8 % (36-47); Lymphocytes % 24.5 %; Mean Corpuscular Hemoglobin 32.4 pg (27-33); Mean Corpuscular Volume 98.1 fl (85-98); Mean Platelet Volume 10.4 fL (7.4-10.4); Monocytes # 0.5 10^3/uL (0.2-0.9); Monocytes % 6.2 %; Neutrophils # 5.36 10^3/uL (1.8-7.7); Neutrophils % 64.7 %; Nucleated Red Blood Cells % 0 %; Platelet Count 275 10^3/cmm (157-399); Red Blood Count 4.26 10^6/uL (3.85-5.65); Red Cell Distribution Width 12.8 % (12.1-15.1); White Blood Count 8.27 10^3/uL (3.29-11.43)
--- NOTE | 2024-06-15 15:08 | CT_ITS ---
WS: [id number] CT HEAD NONCONTRAST HISTORY: AMS TECHNIQUE: Contiguous axial imaging performed through the brain. Bone and soft tissue windows. Sagitt al and coronal reformats reviewed. All CT scans at [facility] use at least one of these dose optimization techniques: automated exposure control; mA and/or kV adjustment per patient size (includ es targeted exams where dose is matched to clinical indication); or iterative reconstruction. DLP: 1012.08 mGy.cm COMPARISON: 05/29/2024 No acute intracranial hemorrhage, midline shift or mass effect. Moderate atrophy with extensive areas of decreased attenuation from from small vessel disease. Simila r to the study of 05/29/2024. Bilateral cerebellar atrophy. Small lacunar infarcts in the LEFT cerebe llum. Ventricles: Mild ventriculomegaly on the basis of central and peripheral atrophy. No inferior displacement of the cerebellar tonsils. Paranasal sinuses: As visualized are clear. Mastoid air cells: Well pneumatized. Calvarium and scalp: Skull is intact with no soft tissue edema or swelling. CT/CT head wo con* [id number] IMPRESSION: 1. No acute intracranial hemorrhage or edema. 2. Moderate volume loss and atrophy with advanced small vessel disease and lac unar infarcts as above. No change since 05/29/2024.
[2024-06-15 15:14] VITALS: BP 116/66; PULSE 68; RESP 18; O2SAT 96
[2024-06-15 15:21] LABS: Alanine Aminotransferase 9 U/L (0-33); Albumin Level 4.3 g/dL (3.5-5.2); Alkaline Phosphatase 100 U/L (35-105); Anion Gap 15.6 (5-19); Aspartate Amino Transferase 14 U/L (0-32); Blood Urea Nitrogen 20 mg/dL (8-23); Carbon Dioxide 21 mmol/L (22-29); Chloride 107 mmol/L (98-107); Glomerular Filtration Rate 55.3 mL/min (90-130); Glucose 86 mg/dL (65-115); Lipase 38 U/L (13-60); Osmolality Calculated 292 mOsm/kg (285-295); Potassium 3.6 mmol/L (3.5-5.1); Sodium 140 mmol/L (136-145); Total Bilirubin 0.7 mg/dL (0.15-1.2); Total Protein 7.3 g/dL (6.6-8.7)
[2024-06-15 15:25] LABS: Alcohol Level < 10 mg/dL (0-10)
[2024-06-15 15:47] LABS: Glucose Point of Care 96 mg/dL (70-110)
[2024-06-15 15:48] LABS: Add Urine Microscopic? NO
[2024-06-15 15:52] LABS: Bilirubin Urine Negative (Negative); Blood Urine Negative (Negative); Glucose Urine UA Negative (Normal); Ketones Urine Negative (Negative); Leukocyte Esterase Urine Negative (Negative); Nitrate Urine Negative (Negative); Protein Urine Negative (Negative); Specific Gravity, Urine 1.018 (1.005-1.030); Urine Appearance Clear (CLEAR); Urine Color Yellow (Yellow)
[2024-06-15 15:57] LABS: Charge for UA Resulting for Rev
[2024-06-15 16:01] LABS: Amphetamines Screen Urine Negative (Negative); Barbiturates Screen Urine Negative (Negative); Benzodiazepines Screen Urine Negative (Negative); Cocaine Screen Urine Negative (Negative); Opiate Screen Urine Negative (Negative); PCP Screen Urine Negative (Negative); THC Screen Urine Positive (Negative)
--- NOTE | 2024-06-15 17:19 | PC.NURSE ---
PER DR. CABRAL, ORDER AND ADMIN 21MG NICOTINE PATCH.
[2024-06-15 17:29] LABS: Thyroid Stimulating Hormone 2.62 uIU/mL (0.27-4.20)
[2024-06-15] MEDS: LORazepam 2 mg/mL INJ 1 mL 1 MG IM (17:31)
[2024-06-15 17:32] LABS: Acetaminophen < 5.0 ug/mL (10-30); Salicylate < 0.3 mg/dL (3-10)
[2024-06-15] MEDS: nicotine 21 mg Patch 1 PATCH TRANSDERMA (17:32)
--- NOTE | 2024-06-15 18:04 | PC.NURSE ---
96 hour hold rights read and reviewed with patient. Barrera from security present during reading of rights. Patient verbalized understandings. Copy of rights given to patient.
[2024-06-15] MEDS: water for injection-sterile 10 ML (18:20)
[2024-06-15] MEDS: ziprasidone 20 mg/mL SDV 5 MG IM (18:20)
[2024-06-15 19:22] LABS: Covid PCR NEGATIVE (Negative); Influenza A NEGATIVE (Negative); Influenza B NEGATIVE (Negative); Respiratory Syncytial Virus Ce NEGATIVE (Negative)
--- NOTE | 2024-06-16 01:00 | PC.NURSE ---
pt anxious and tearful. md notified. medication ordered and administered.
[2024-06-16] MEDS: LORazepam 2 mg/mL INJ 1 mL IM (01:17)
[2024-06-16 06:07] VITALS: BP 119/69; PULSE 61; RESP 18; O2SAT 100
[2024-06-16] MEDS: quetiapine 25 mg Tablet PO ×2 (09:41→10:56)
--- NOTE | 2024-06-16 10:51 | PC.NURSE ---
PER VERBAL ORDER FROM DR. CABRAL, ADMIN 25 MG SEROQUEL ONCE.
--- NOTE | 2024-06-16 10:59 | PC.NURSE ---
PATIENT BEGAN HITTING HEAD ON WALL STATING I JUST WANT TO AND VERY TEARFUL. PATIENT AGREED TO TAKE SEROQUEL 25MG ORDERED BY DR. CABRAL. PROVIDER NOTIFIED. PATIENT WAS ABLE TO BE REDIRECTED
[2024-06-16] MEDS: water for injection-sterile 10 ML (11:19)
[2024-06-16] MEDS: ziprasidone 20 mg/mL SDV 10 MG IM (11:19)
== END 2024-06-16 12:40 ==
PROVIDERS: Emergency Medicine; Emergency Provider Family Medicine; PCP Family Medicine
DX: R45.851 Suicidal ideations (principal); R91.1 Solitary pulmonary nodule; Z11.52 Encounter for screening for COVID-19; F17.210 Nicotine dependence, cigarettes, uncomplicated
CPT/HCPCS: 0241U; 36415; 36416; 70450; 71045; 80053; 80201; 80306; 80307; 81003; 82962; 83690; 84443; 85025; 93005; 96372; 99285; J2060; J3486